=== PATIENT | female | born 2000 | race Caucasian/White ===

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

== ENCOUNTER 2025-07-06 15:10 | Outpatient (CLI) | payer BC, SELFPAY ==
--- NOTE | ~2025-07-06 | US_ITS ---
EXAMINATION: US transvaginal, 07/06/2025 15:12 [facility]IMARY CARE NURSE HISTORY: Encounter for routine checking of intrauterine con Comparison: None Technique: Romero-scale and color Doppler images were obtained. Findings: Uterus: Uterus anteverted 8.5 x 3.5 x 5.2 cm. . Endometrium 6 mm, IUD is noted within the uterine cavity in appropriate location. Right Ovary:Right ovary 4.4 x 2 x 1.9 cm, no adnexal mass, normal flow. Left Ovary: Left ovary 3.1 x 2 x 2.3 cm, no adnexal mass, normal flow. Free Fluid: None Impression: IUD in appropriate location Reviewed, dictated and finalized at location P. [facility] NURSE Impression: IUD in appropriate location
== END 2025-07-06 15:11 | disposition home or self-care (01) ==
LOC: MICIMG 15:11
DX: Z30.431 Encounter for routine checking of intrauterine contraceptive device (principal)
CPT/HCPCS: 76830